=== PATIENT | female | born 1975 | race Caucasian/White ===

== ENCOUNTER 2021-05-28 06:52 | Outpatient (RCR) | payer BC, SELFPAY ==
[2021-05-28 09:04] LABS: Cortisol Baseline 9.27 ug/dL
== END 2021-08-26 23:59 | disposition home or self-care (01) ==
LOC: ANHVASCINF 06:52
PROVIDERS: Visit Provider Internal Medicine Endocrinology, Diabetes & Metabolism
DX: R94.7 Abnormal results of other endocrine function studies (principal)
CPT/HCPCS: 36415; 82533; 96372; J0834